=== PATIENT | male | born 1970 | race Hispanic/Latino ===

== ENCOUNTER 2018-05-28 15:14 | Outpatient (CLI) | payer OTHER | END 2018-05-28 15:15 | disposition home or self-care (01) | LOC: RAD 15:14 ==

== ENCOUNTER 2018-05-29 10:47 | Outpatient (CLI) | payer OTHER | END 2018-05-29 10:48 | disposition home or self-care (01) | LOC: RAD 10:47 ==

== ENCOUNTER 2018-07-04 07:50 | Day surgery (SDC) | payer OTHER ==
[2018-07-04] MEDS ORDERED: Sodium Chloride 0.9% 1,000 ML IV SCH (08:00)
[2018-07-04 08:07] VITALS: BMI 25.0
--- NOTE | 2018-07-04 08:17 | ED PDOC ---
Arrival/HPI - General Chief Complaint: Lower Extremity Problem/Injury Time Seen by Provider: 07/04/18 07:50 - History of Present Illness Narrative History of Present Illness (Text): 07/04/18 08:12 48 m presents to the ED with chief complaint of persistent low extremity pain. Patient states the pain is in both legs but worse in the right leg, involves full legs. Patient denies chest pain or dyspnea at this time. Pain is ongoing, exacerbated with physical activity, relieved with rest. 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 Patient also has mild swelling of the right leg when compared to the contralateral leg. Patient takes a blood thinner (twice a day) but us unsure of the name of the medication. 07/04/18 08:19 Past Medical History - Infectious Disease Hx of Infectious Diseases: None - Psychiatric Hx Substance Use: No Family/Social History Family/Social History: Unknown Family HX Smoking Status: Never Smoked Hx Alcohol Use: No Hx Substance Use: No Allergies/Home Meds Allergies/Adverse Reactions: Allergies No Known Allergies Allergy (Unverified 07/04/18 07:51) Home Medications: Home Meds Medication Instructions Recorded Confirmed Apixaban [Eliquis] 2.5 mg PO BID 07/04/18 07/04/18 Review of Systems - Physician Review All systems were reviewed & negative as marked: Yes Physical Exam - Physical Exam Narrative Physical Exam (Text): 07/04/18 08:15 Gen: VS reviewed, alert, well developed, well nourished, nontoxic, mild distress Eye: EOMI, PERRL Neck: no JVD, supple, no adenopathy CV: regular rate, regular rhythm, no rubs,no murmur, S1, S2 Pulm: no distress, clear to auscultation, no wheeze, no rhonchi, breath sounds equal, no rales Abd: soft, nontender, no guarding, no rebound, no rigidity Ext: there is swelling of the right leg compared to the left leg, there is a right palpable pedal pulse, there is varicosity of the right leg, there is no cyanosis of both legs, there is faint pulse in the left pedal pulse. Skin: good color, no rash, no cyanosis Psych: responds appropriately to questions, normal affect Neuro: oriented x3, CN2-12 intact grossly, motor intact, sensation intact Medical Decision Making ED Course and Treatment: 07/04/18 08:17 patient sent to the ED by dr. mariana holloway for same day surgery procedure for vascular evaluation (?venogram and arteriogram). admit accepted by dr. holloway to his service, observation, sds. - RAD Interpretation Radiology Orders: 07/04/18 08:06 CAR PERIPHERAL VASCULAR ORDER [VASCULAR] Stat - Medication Orders Current Medication Orders: Sodium Chloride (Sodium Chloride 0.9%) 1,000 mls @ 75 mls/hr IV .[id number] ISABELLA Disposition/Present on Arrival - Present on Arrival Any Indicators Present on Arrival: No History of DVT/PE: No History of Uncontrolled Diabetes: No Urinary Catheter: No History of Decub. Ulcer: No History Surgical Site Infection Following: Orthopedic Procedures - Disposition Have Diagnosis and Disposition been Completed?: Yes Diagnosis: Arterial occlusion Disposition: HOSPITALIZED Disposition Time: 08:18 Patient Plan: Observation Condition: GUARDED
[2018-07-04] MEDS ORDERED: Nitroglycerin 50mg in D5W 50 MG/250 ML BOTTLE IV ONE (08:21)
[2018-07-04] MEDS ORDERED: Iodixanol 320 MG/ML 200 ML BOTTLE IV ONE (08:21)
[2018-07-04] MEDS ORDERED: Lidocaine PF 2% (5 ml) Inj (For Cardiac Arrhy) ONE (08:21)
[2018-07-04] MEDS ORDERED: Iodixanol 320 MG/ML 100 ML BOTTLE IV ONE (08:21)
[2018-07-04] MEDS ORDERED: Heparin 2,000 ML IV ONE (08:22)
[2018-07-04 08:25] LABS: BASO # 0.03 K/mm3 (0.0-2.0); BASO % 0.6 % (0.0-3.0); EOS # 0.2 (0.0-0.7); EOS % 2.9 % (1.5-5.0); HEMOGLOBIN 15.3 g/dL (14.0-18.0); LYMPH # 1.6 (1.2-3.4); LYMPH % 30.8 % (22.0-35.0); MEAN CELL VOLUME 87.6 fl (80.0-105.0); MEAN CORPUSCULAR HGB CONC 34.2 g/dl (31.0-37.0); MEAN PLATELET VOLUME 10.4 fl (7.0-11.0); MONO # 0.6 (0.1-0.6); MONO % 11.2 % (1.0-6.0); RBC 5.1 10^6/uL (3.5-6.1); RED CELL DISTRIBUTION WIDTH 12.6 % (11.5-14.5); WHITE BLOOD COUNT 5.3 10^3/uL (4.5-11.0)
[2018-07-04 08:32] LABS: INR 0.96; PROTHROMBIN TIME 10.8 SECONDS (9.4-12.5)
[2018-07-04 08:33] LABS: BLOOD UREA NITROGEN 16 mg/dL (7-21); CALCIUM 8.8 mg/dL (8.4-10.5); GFR NON-AFRICAN AMERICAN > 60
[2018-07-04] MEDS ORDERED: Midazolam 2 MG/2 ML VIAL ONE ×2 (09:37→09:49)
[2018-07-04] MEDS ORDERED: Oxycodone/Acetaminophen 5/325 mg Tab PO PRN (10:31)
[2018-07-04] MEDS ORDERED: Sodium Chloride 0.45% 1,000 ML IV SCH (10:45)
[2018-07-04 11:39] VITALS: RESP 16; TEMP 97.9; O2SAT 99
[2018-07-04 12:58] VITALS: PULSE 66
[2018-07-04 13:41] VITALS: BP 125/85
--- NOTE | 2018-07-04 16:10 | VASCULAR ---
Date of service: 07/04/2018 PROCEDURE: 1. Right lower extremity venogram 2. IVC gram 3. Right common femoral vein angioplasty and stent placement HISTORY: Severe chronic venous insufficiency. Previous right GSV ablation. Chronic right lower extremity swelling pain and symptoms postprocedure. Right common femoral vein occlusion PHYSICIAN(S): Shukri Law M.D. TECHNIQUE: The relative risks and indications of the procedure were explained to the patient and his and consent obtained. The patient was hydrated prior to the procedure and the appropriate labs drawn. The patient was placed supine on the arteriogram table and the right groin prepped and draped in the usual sterile fashion. Conscious sedation and monitoring were provided throughout the procedure by a nurse. Under ultrasound guidance, the right femoral vein was punctured in the upper thigh. A 6 Monegasque sheath was placed. A limited right lower extremity venogram was performed. This revealed short segment occlusion of the right common femoral vein. The occlusion was crossed rather easily with a 5 Monegasque catheter and angled Glidewire. Exchange is made for a 0.035 Amplatz support wire. The right common femoral vein occlusion was dilated with 5, 8, and 12 mm balloons. A 14 mm x 6 cm Nitinol stent was deployed in the right common femoral vein. It was dilated post deployment with a 12 mm balloon. Completion venograms were obtained. The sheath was removed hemostasis obtained. The patient tolerated the procedure well. FINDINGS: There is a chronic occlusion with collaterals of the right common femoral vein. The right iliac system and IVC are otherwise normal. The visualized right femoral vein below the occlusion is normal. IMPRESSION: 1.Chronic right common femoral vein occlusion. 2. Successful right common femoral vein recanalization with angioplasty and stent placement as described above. 3. The patient should remain on anticoagulation for 12-18 months. He should continue to wear his compression stocking.
== END 2018-07-04 14:19 | disposition home or self-care (01) ==
LOC: ED 07:50 → SDS 08:26 → CARDVAS 08:26 → SDSVAS 08:26 → SDS 14:19
PROVIDERS: ATTEND Radiology Vascular & Interventional Radiology
DX: I82.511 Chronic embolism and thrombosis of right femoral vein (principal); I87.2 Venous insufficiency (chronic) (peripheral); Z79.01 Long term (current) use of anticoagulants
CPT/HCPCS: 36005; 37238; 75820; 75825; 76937; 80048; 85025; 85610; 85730; 99152; 99153; 99283; C1725 ×3; C1769 ×4; C1876; C1894; J0690; J1644 ×2; J2250; J2405; J3010; J7030 ×2; Q9966; Q9967